=== PATIENT | male | born 1995 | race African-American/Black ===

== ENCOUNTER 2022-01-07 08:48 | Emergency (ER) | payer OTHER, SELFPAY ==
[2022-01-07 08:49] VITALS: BP 160/110; PULSE 78; RESP 16; TEMP 36.4; O2SAT 100; BMI 37.8
[2022-01-07] MEDS: Mag Hydrox/Al Hydrox/Simeth 30 ML UDC PO (09:22)
[2022-01-07 09:28] LABS: Absolute Lymphocyte Count 1.74 X10^3/uL (0.83-4.51); Absolute Neutrophil Count 4.2 X10^3/uL (2.0-7.7); Basophil# 0.03 X10^3/uL; Basophil% 0.5 % (0-1); Eosinophil# 0.03 X10^3/uL; Eosinophils% 0.5 % (0-5); Hematocrit 41.2 % (40-54); Hemoglobin 13.9 g/dL (13.0-16.5); Lymphocyte # 1.74 X10^3/ul (0.83-4.51); Lymphocyte % 26.8 % (19-41); Mean Corp Hgb Conc 33.7 g/dL (32-36); Mean Corpuscular Hgb 29.7 pg (27.0-32.0); Mean Platelet Vol. 10.9 fl (6.2-12.0); Monocyte# 0.47 X10^3/uL; Monocyte% 7.2 % (0-10); NRBC Flagged by Analyzer 0 % (0-5); Neutrophil # 4.22 X10^3/uL (2.7-7.7); Neutrophil % 64.8 % (47-70); Platelet Count 252 K/mm3 (150-450); RBC Distribution Width SD 42.4 fl (35.1-43.9); Red Blood Count 4.68 M/mm3 (4.6-6.2); White Blood Count 6.5 K/mm3 (4.4-11.0)
--- NOTE | 2022-01-07 09:35 | ED.VIS.GI ---
HPI HPI - GI History of Present Illness Chief Complaint: Abd Pain Informant: patient Abdominal Pain/Flank Pain Onset: Days (4-5) Context: Gradual Onset Timing: Intermittent Quality: Aching and Burning Location: Epigastric (radiates into mid-back) Current Severity: Moderate Maximum Severity: Moderate Worsened by: Food (certain ones) Nausea/Vomiting/Emesis GI Symptom: Positive for Nausea; Negative for Vomiting Diarrhea/Melena/Hematochezia GI Symptom: Negative for Diarrhea, Melena and Hematochezia Associated Symptoms Associated Symptoms: Negative for Dysuria, Frequency, Hematuria and Urgency Narrative Narrative: Patient states he has had discomfort like this in the past, epigastric he associates it with reflux, it has improved temporarily and partially with antiacids and famotidine, but it did not get better and this morning so he presents. It is radiating into his mid back. Denies any thoracic symptoms or chest discomfort. Some nausea at times not right now, no vomiting/hematemesis, no melena or bright red blood per rectum. No lightheadedness or other systemic symptoms. He states it started for 5 days ago after drinking apple cider vinegar for health benefits and he associates this with when he was working out. It went away temporarily, it came back later during the weekend, he states it tends to get worse after he eats acidic foods/drinks. PFSH PFSH Medical History no medical history no medical history Home Medications famotidine 20 mg PO BID #28 tablet 03/21/15 [Rx Last Taken Unknown] Allergy/AdvReac Type Severity Reaction Status Date / Time No Known Allergies Allergy Verified 01/07/22 08:50 Surgical History H/O medial meniscus repair of left knee History of arthroscopy of right knee Social History Smoking Status: Current some day smoker tobacco type: cigars ROS ROS ED Constitutional Constitutional ED: Denies chills or fever(s) Eyes Eyes: Denies change in vision or diplopia ENT ENT ED: Denies rhinorrhea or sore throat Cardiovascular Cardiovascular: Denies chest pain or palpitations Respiratory/Chest Respiratory/Chest: Denies cough or dyspnea Gastrointestinal Gastrointestinal: Reports abdominal pain and nausea; Denies diarrhea or vomiting Genitourinary Genitourinary ED: Denies dysuria or hematuria Musculoskeletal Musculoskeletal: Denies back pain or neck pain Integumentary Denies abscess or rash Neurologic Neurologic: Denies headache(s), paresthesias or weakness Psychiatric Psychiatric: Denies anxiety or suicidal thoughts EXAM Physical Exam Const Vital Signs: 01/07/22 08:49 01/07/22 09:54 01/07/22 11:59 Temperature 97.5 F L Temperature Source Temporal Pulse Rate 78 82 Respiratory Rate 16 Blood Pressure 160/110 H 146/76 H 126/94 H Blood Pressure Mean 126 99 104 Pulse Ox 100 Oxygen Delivery Method Room Air Positive well nourished and well developed General Appearance ED: well developed and NAD HEENT Reports moist mucous membranes normocephalic and atraumatic Eyes PERRL and EOMs intact bilaterally Neck full ROM and supple Resp normal respiratory effort and clear to auscultation bilaterally Cardio regular rate, regular rhythm and no murmurs GI non-distended GI Narrative: Tender epigastric without guarding or rebound, mild right upper quadrant tenderness negative Wallace's Auscultation: normoactive bowel sounds Palpation: soft Back/Spine no CVA tenderness General Back: other FROM Extremity normal to inspection General Extremety ED: Negative for edema, pulses abnormal or tenderness General Extremity: Negative for edema or pulses abnormal Neuro oriented x3, CN's II-XII intact bilaterally and no sensory deficits noted Sensorium / Orientation: awake and alert Motor Exam: strength 5/5 throughout Skin no rashes or lesions noted and no wounds MDM MDM MDM Narrative Medical decision making narrative: Patient with epigastric pain radiating into his back, he had some alcohol couple nights ago which is one of the things he ate/drank that seem to make his symptoms worse, symptoms sound like gastritis, so we did some labs with a lipase and they were all unremarkable. I did a bedside ultrasound of his gallbladder after GI cocktail did not help his symptoms at all. It appeared to show multiple bilirubin gallstones. I sent him for an official ultrasound, which showed similar without signs of acute cholecystitis, and give him an injection of Toradol which completely resolved his pain. I discussed with Dr. Thornton who agrees with outpatient follow-up, patient given appropriate diet restrictions for what is likely biliary colic. He was wondering if he needs a prescription for a PPI, I do not think so, but if you want to take daily famotidine I think it would be reasonable. We discussed reasons to return he is comfortable with that plan. Lab Data Attestation: I reviewed the patient's lab results. Labs: Laboratory Results - last 24 hr 01/07/22 01/07/22 09:18 09:18 WBC 6.5 RBC 4.68 Hgb 13.9 Hct 41.2 MCV 88.0 MCH 29.7 MCHC 33.7 RDW Std Deviation 42.4 RDW Coeff of Maritza 13.0 Plt Count 252 MPV 10.9 Immature Gran % (Auto) 0.200 Neut % (Auto) 64.8 Lymph % (Auto) 26.8 [place] % (Auto) 7.2 Eos % (Auto) 0.5 Baso % (Auto) 0.5 Absolute Neuts (auto) 4.2 Absolute Lymphs (auto) 1.74 Nucleated RBC % 0 Sodium 136 Potassium 4.5 Chloride 102 Carbon Dioxide 30.0 Anion Gap 4 L BUN 11 Creatinine 1.06 Estim Creat Clear Calc 123.86 Est GFR (MDRD) Af Amer 109 Est GFR (MDRD) Non-Af 90 BUN/Creatinine Ratio 10.4 Glucose 115 H Calcium 8.9 Total Bilirubin 0.60 AST 52 H ALT 35 Alkaline Phosphatase 81 Total Protein 8.3 H Albumin 3.6 Globulin 4.7 H Albumin/Globulin Ratio 0.8 L Lipase 35 L Radiography Diagnostic Testing: Clinical Impression(s) from Imaging Studies Gallbladder Ultrasound 01/07/22 11:00 IMPRESSION: Borderline hepatomegaly. Multiple small gallstones. Electronically Signed: Laith Singer MD at 12:28 EDT , Discharge Plan Triage Chief Complaint: Abd Pain ED Provider: Dhruv Ceron Dx/Rx/DC Orders Clinical Impression: Biliary colic, Cholelithiasis Instructions: ED Gallstones with Biliary Colic Prescriptions: No Action famotidine 20 MG tablet 20 mg PO BID Qty: 28 RF: 0 Stand Alone Forms: ED Work / School Excuse Primary Care Provider: Care Physician,No Primary Referrals: Raymond Thornton MD [STAFF PHYSICIAN] - As soon as possible (call for appt) Care Physician,No Primary [Primary Care Provider] - Disposition Disposition: Home, Self Care
[2022-01-07 09:47] LABS: ALB/GLOB Ratio 0.8 RATIO (0.9-2.4); AST(SGOT) 52 U/L (15-37); Alanine Aminotransfer ALT/SGPT 35 U/L (16-61); Albumin, Serum 3.6 g/dL (3.2-5.0); Alkaline Phosphatase 81 U/L (45-117); Anion Gap 4 (5-15); BUN 11 mg/dL (7-18); BUN/Creat Ratio 10.4 RATIO (10-20); Calcium,Total 8.9 mg/dL (8.5-10.1); Chloride 102 mmol/L (98-107); Creatinine, Serum 1.06 mg/dL (0.70-1.30); EST Glomerular Filtration Rate 90 mL/min (>60); Est Glom Filt Rate - Afr Amer 109 mL/min (>60); Estimated Creatinine Clearance 123.86 ml/min; Globulin 4.7 g/dL (2.2-4.2); Glucose 115 mg/dL (74-106); Lipase 35 U/L (73-393); Potassium 4.5 mmol/L (3.5-5.1); Protein, Total 8.3 g/dL (6.4-8.2); Sodium Level 136 mmol/L (136-145)
[2022-01-07 09:54] VITALS: BP 146/76
--- NOTE | 2022-01-07 11:00 | US_ITS ---
STUDY: ABDOMINAL ULTRASOUND - RIGHT UPPER QUADRANT REASON FOR VISIT: Male, 26 years old . Right upper quadrant and epigastric pain. TECHNIQUE: Ultrasound evaluation of the right upper quadrant was performed with real-time and static velez-scale imaging. TECHNICAL QUALITY: Adequate. Examination limited by bowel gas. COMPARISON: None. FINDINGS: Liver: The liver measures upper limits of normal measures 17.6 cm. There is normal echogenicity of the liver. The bile ducts are within normal limits. There is hepatic color flow. The direction of portal flow is hepatopetal. There is no demonstrated mass lesion. Gallbladder: Normal distended gallbladder. The gallbladder wall measures 2.7 mm. There is a negative sonographic Wallace''s sign. There is no pericholecystic fluid. There are multiple echogenic structures within the gallbladder, consistent with multiple gallstones. Common Bile Duct (C.B.D.): The common bile duct measures 2.6 mm. Pancreas: Normal size of the head, body and tail of the pancreas. There is normal echogenicity of the pancreas. There is no demonstrated pancreatic mass or cyst. Right Kidney: Normal size of the right kidney. The right kidney measures 11.9 cm x 6.9 cm x 5.1 cm. Normal renal cortex. The right cortex measures 1.6 cm. There is no demonstrated renal mass or cyst. There is no right hydronephrosis. US/Gallbladder IMPRESSION: Borderline hepatomegaly. Multiple small gallstones. Electronically Signed: Laith Singer MD at 12:28 EDT ,
[2022-01-07] MEDS: Ketorolac 60 MG/2 ML Vial IM (11:58)
[2022-01-07 11:59] VITALS: BP 126/94; PULSE 82
--- NOTE | 2022-01-07 12:21 | CM.ED ---
Social Work Consult: No PCP Referral source: Self referral due to above Met with patient in room. Introduced self and social worker clinical role. Patient agreeable to speak with this social worker clinical. Patient confirms to not have a PCP and states my mom has been saying I need to get one. This social worker clinical provided patient with list of local PCP options for patient as well as encouraged patient to set up a PCP. Patient denies any concerns in the community. No further services request or indicated. Deon MARTINEZ, GLENDA
[2022-01-07 12:56] VITALS: BP 134/78; PULSE 81
== END 2022-01-07 12:57 | disposition home or self-care (01) ==
PROVIDERS: Emergency Provider Emergency Medicine; Visit Provider Emergency Medicine
DX: K80.70 Calculus of gallbladder and bile duct without cholecystitis without obstruction (principal); F17.290 Nicotine dependence, other tobacco product, uncomplicated
CPT/HCPCS: 76705; 80053; 83690; 85025; 96372; 99282